=== PATIENT | male | born 1955 | race Caucasian/White ===

== ENCOUNTER 2018-07-20 15:14 | Day surgery (SDC) | payer BC ==
[2018-07-20] MEDS ORDERED: Lidocaine 1%/Sod Bicarbonate in NS 8.4% 1 ML Syringe IDERM PRN (16:21)
[2018-07-20] MEDS ORDERED: Sodium Chloride 0.9% 10 ML Syringe FLUSH PRN (16:21)
[2018-07-20] MEDS ORDERED: Bupivacaine 0.5%/EPINEPHrine 1:200,000 50 ML MDV ONE (16:24)
[2018-07-20] MEDS ORDERED: Lidocaine 1% with EPINEPHrine 1:100,000 20 ML MDV ONE (16:24)
--- NOTE | 2018-07-20 16:28 | PCM.PREANE ---
Preanesthetic Assessment - Anesthesia/Transfusion/Family Hx Anesthesia History: Prior Anesthesia Without Reaction Family History of Anesthesia Reaction: No Transfusion History: No Prior Transfusion(s) - Review of Systems General: No Symptoms Pulmonary: No Symptoms Cardiovascular: No Symptoms Gastrointestinal: No Symptoms Neurological: No Symptoms Other: Reports: None - Physical Assessment NPO Status Date: 07/20/18 NPO Status Time: 07:00 Pulse: 74 O2 Sat by Pulse Oximetry: 98 Respiratory Rate: 16 Blood Pressure: 148/64 Temperature: 37.1 C Vital Signs: Last Vital Signs Temp 37.1 C 07/20/18 15:23 Pulse 74 07/20/18 15:23 Resp BP 174/88 H 07/20/18 15:23 Pulse Ox 98 07/20/18 15:23 Height: 1.8 m Weight: 66.678 kg Mental Status: Alert & Oriented x3 Airway Class: Mallampati = 1 Dentition: Reports: Normal Dentition, [place](s) Thyro-Mental Finger Breadths: 3 Mouth Opening Finger Breadths: 3 ROM/Head Extension: Full Lungs: Clear to Auscultation, Normal Respiratory Effort Cardiovascular: Regular Rate, Regular Rhythm, No Murmurs - Lab Values: on chart - Allergies Allergies/Adverse Reactions: Allergies Allergy/AdvReac Type Severity Reaction Status Date / Time No Known Allergies Allergy Verified 07/20/18 15:22 - Blood Blood Available: No Product(s) Available: None - Anesthesia Plan Pre-Op Medication Ordered: None - Acknowledgements Anesthesia Type Planned: MAC Pt an Appropriate Candidate for the Planned Anesthesia: Yes Alternatives and Risks of Anesthesia Discussed w Pt/Guardian: Yes Pt/Guardian Understands and Agrees with Anesthesia Plan: Yes PreAnesthesia Questionnaire Cardiovascular History: Reports: High Cholesterol - SUBSTANCE USE Smoking Status *Q: Former Smoker Tobacco Use Within Last Twelve Months: Cigarettes Second Hand Smoke Exposure: No Days Per Week of Alcohol Use: 0 Number of Drinks Per Day: 0 Total Drinks Per Week: 0 Recreational Drug Use History: No - HOME MEDS Home Medications: Home Meds Rosuvastatin [Crestor] 5 mg PO BEDTIME 07/20/18 [History] Zolpidem Tartrate [Ambien] 5 mg PO BEDTIME 07/20/18 [History] - CURRENT (IN HOUSE) MEDS Current Meds: Current Medications Lactated Ringer's (Ringers, Lactated) 1,000 mls @ 125 mls/hr IV ASDIRECTED СВЕТЛАНА Lidocaine/Sodium Bicarbonate (Buffered Lidocaine 1% In Ns 8.4%) 0.25 ml IDERM ONETIME PRN PRN Reason: Prior to IV Start Sodium Chloride (Saline Flush) 10 ml FLUSH ASDIRECTED PRN PRN Reason: Keep Vein Open
[2018-07-20] MEDS ORDERED: Lactated Ringers 1,000 ML IV SCH (16:30)
[2018-07-20] MEDS ORDERED: Midazolam 1 MG/ML 2 ML SDV ONE (16:40)
[2018-07-20] MEDS ORDERED: Propofol 200 MG/20 ML SDV ONE (16:40)
[2018-07-20] MEDS ORDERED: fentaNYL 250 MCG/5 ML SDV ONE (16:40)
[2018-07-20] MEDS ORDERED: Lidocaine 1% 4 ML ONE (16:40)
[2018-07-20] MEDS ORDERED: Ketorolac 30 MG/ML SDV ONE (17:09)
--- NOTE | 2018-07-20 17:16 | PCM.OPNOTE ---
- General Post-Op/Procedure Note Date of Surgery/Procedure: 07/20/18 Operative Procedure(s): I&D ivan rectal abscess Pre Op Diagnosis: ivan rectal abscess Post-Op Diagnosis: Same Anesthesia Technique: MAC Primary Surgeon: Yung Rowe EBL in mLs: 5 Complications: None Condition: Good
[2018-07-20] MEDS ORDERED: HYDROmorphone 1 MG/ML Syringe IVPUSH PRN (17:25)
[2018-07-20] MEDS ORDERED: fentaNYL 100 MCG/2 ML SDV IVPUSH PRN (17:25)
--- NOTE | 2018-07-20 17:27 | PCM48HPAN ---
Post Anesthesia Note - EVALUATION WITHIN 48HRS OF ANESTHETIC Vital Signs in Normal Range: Yes Patient Participated in Evaluation: Yes Respiratory Function Stable: Yes Airway Patent: Yes Cardiovascular Function Stable: Yes Hydration Status Stable: Yes Pain Control Satisfactory: Yes Nausea and Vomiting Control Satisfactory: Yes Mental Status Recovered: Yes Pulse Rate: 78 SaO2: 99 Resp Rate: 16 Temperature: 37.3 C Blood Pressure: 139/71 - COMMENTS/OBSERVATIONS Free Text/Narrative:: no anesthesia complications noted
--- NOTE | 2018-07-20 17:27 | PCM.POSTAN ---
POST ANESTHESIA ASSESSMENT - MENTAL STATUS Mental Status: Somnolent - VITAL SIGNS Pulse Rate: 12 SaO2: 95 Resp Rate: 12 Blood Pressure: 139/71 Temperature: 37.3 C - RESPIRATORY Respiratory Status: Respiratory Rate WNL, Airway Patent, O2 Saturation Stable, Supplemental Oxygen - CARDIOVASCULAR CV Status: Pulse Rate WNL, Blood Pressure Stable - GASTROINTESTINAL GI Status: No Symptoms - PAIN Pain Score: 0 - POST OP HYDRATION Hydration Status: Adequate & Stable
--- NOTE | 2018-07-20 22:14 | OR ---
DATE OF OPERATION: 07/20/2018 SURGEON: Yung Rowe MD PREOPERATIVE DIAGNOSIS: Perirectal abscess. POSTOPERATIVE DIAGNOSIS: Perirectal abscess. OPERATION PERFORMED: Incision and drainage done under IV sedation, local anesthetic of 0.5% Marcaine. FINDINGS: A small perirectal abscess in the right anterior perirectal area. Did not show any connection with the anal glands. ESTIMATED BLOOD LOSS: 5 mL. DESCRIPTION OF PROCEDURE: The patient was taken to the operating room, placed in a supine position, connected to monitoring equipment, given IV sedation and placed in a lithotomy position. Perianal area was prepped with Betadine and draped off in a sterile fashion. Swelling was noted at the perirectal area and this was incised and pus was removed. It was then packed open with a quarter-inch Nu Gauze. Bleeding ceased with pressure. Inspection within the anal canal did not show any other pathology. Palpation did not show any extension beyond the abscess beyond this area. This completed the operation. The patient tolerated the procedure and sent to recovery room in a stable condition. ANESTHESIA: MMODAL /[id number]
== END 2018-07-20 18:20 | disposition home or self-care (01) ==
LOC: JD.ED 15:14 → JD.SDS 17:23
PROVIDERS: ATTEND Surgery
DX: K61.1 Rectal abscess (principal); E78.00 Pure hypercholesterolemia, unspecified; Z79.899 Other long term (current) drug therapy; Z87.891 Personal history of nicotine dependence
CPT/HCPCS: 46040; J1885; J2250; J2704; J3010; J3490; 99284; J2001

== ENCOUNTER 2019-04-25 01:06 | Emergency (ER) | payer MEDICARE, BC ==
--- NOTE | 2019-04-25 01:42 | EDM.PDOC ---
ED HPI GENERAL MEDICAL PROBLEM - General Chief Complaint: Flank Pain Stated Complaint: POSS KIDNEY STONE Time Seen by Provider: 04/25/19 01:19 Source of Information: Reports: Patient, RN Notes Reviewed - History of Present Illness INITIAL COMMENTS - FREE TEXT/NARRATIVE: 64-year-old male comes in with right low back discomfort. This first started 2 days ago, is worse this evening, unable to sleep. Pain is primarily right low back with radiation to right flank. It does not get better with rest and not worse with motion. No nausea vomiting fever or chills. No voiding symptomatology. History of prior kidney stones. Treatments LEAD RECOVERER: Reports: NSAIDS Right Flank Pain Score (Numeric/FACES): 5 - Related Data Allergies Allergy/AdvReac Type Severity Reaction Status Date / Time No Known Allergies Allergy Verified 04/25/19 01:14 Home Meds: Home Meds Rosuvastatin [Crestor] 5 mg PO BEDTIME 07/20/18 [History] Zolpidem Tartrate [Ambien] 5 mg PO BEDTIME PRN 07/20/18 [History] Past Medical History HEENT History: Reports: Impaired Vision Cardiovascular History: Reports: High Cholesterol Genitourinary History: Reports: Renal Calculus - Infectious Disease History Infectious Disease History: Reports: Chicken Pox - Past Surgical History HEENT Surgical History: Reports: Oral Surgery, Tonsillectomy Social & Family History - Family History Family Medical History: Noncontributory - Tobacco Use Smoking Status *Q: Former Smoker Used Tobacco, but Quit: Yes Month/Year Tobacco Last Used: 2017 - Caffeine Use Caffeine Use: Reports: Soda - Recreational Drug Use Recreational Drug Use: No ED ROS GENERAL - Review of Systems Review Of Systems: See Below HEENT: Reports: No Symptoms Respiratory: Reports: No Symptoms Cardiovascular: Reports: No Symptoms GI/Abdominal: Denies: Abdominal Pain, Nausea, Vomiting Musculoskeletal: Reports: Back Pain Skin: Reports: No Symptoms Neurological: Reports: No Symptoms ED EXAM, RENAL/ - Physical Exam Exam: See Below General Appearance: Alert, Moderate Distress Head: Atraumatic Neck: Supple Respiratory/Chest: No Respiratory Distress, Lungs Clear, Normal Breath Sounds Cardiovascular: Regular Rate, Rhythm GI/Abdominal: Soft, Non-Tender. No: Guarding Back Exam: No: CVA Tenderness (L), CVA Tenderness (R), Paraspinal Tenderness Extremities: Normal Inspection, Normal Range of Motion Neurological: Alert, Oriented, No Motor/Sensory Deficits Course - Vital Signs Last Recorded V/S: Last Vital Signs Temp 97.4 F 04/25/19 01:11 Pulse 70 04/25/19 01:11 Resp 18 04/25/19 01:11 BP 164/92 H 04/25/19 01:11 Pulse Ox 100 04/25/19 01:11 - Orders/Labs/Meds Orders: Active Orders 24 hr Category Date Time Status Abdomen Pelvis wo Cont [CT] Stat Exams 04/25/19 01:28 Taken Labs: Laboratory Tests 04/25/19 Range/Units 01:45 Urine Color Yellow (Yellow) Urine Appearance Clear (Clear) Urine pH 7.0 (5.0-8.0) Ur Specific [place] 1.020 (1.005-1.030) Urine Protein Negative (Negative) Urine Glucose (UA) Negative (Negative) Urine Ketones Negative (Negative) Urine Occult Blood Negative (Negative) Urine Nitrite Negative (Negative) Urine Bilirubin Negative (Negative) Urine Urobilinogen 0.2 (0.2-1.0) Ur Leukocyte Esterase Negative (Negative) Urine RBC 0-5 (0-5) /hpf Urine WBC 0-5 (0-5) /hpf Ur Epithelial Cells Not seen (0-5) /hpf Urine Bacteria Not seen (FEW) /hpf Urine Mucus Not seen (FEW) /hpf - Re-Assessments/Exams Free Text/Narrative Re-Assessment/Exam: 04/25/19 03:06 UA was negative, CT does not show kidney stone or hydrocodone ureter. It does show a right renal cyst. See report for details. Discharge instructions as documented Departure - Departure Time of Disposition: 03:03 Disposition: Home, Self-Care 01 Condition: Fair Clinical Impression: Renal cyst Back pain Qualifiers: Back pain location: low back pain Chronicity: acute Back pain laterality: right Sciatica presence: without sciatica Qualified Code(s): M54.5 - Low back pain - Discharge Information Referrals: Eric Gilman MD [Primary Care Provider] - Forms: ED Department Discharge Additional Instructions: Rest back, avoid heavy lifting, alternate ice and heat as needed, Tylenol or ibuprofen every 6-8 hours for mild to moderate discomfort or hydrocodone previously prescribed if needed for more severe pain. Do not take Tylenol and hydrocodone at the same time. Do not drive when taking hydrocodone, follow up with Dr. Lomas if discomfort not resolving within 5-7 days as expected, return to ED as needed. - My Orders Last 24 Hours: My Active Orders 04/25/19 01:28 Abdomen Pelvis wo Cont [CT] Stat - Assessment/Plan Last 24 Hours: My Active Orders 04/25/19 01:28 Abdomen Pelvis wo Cont [CT] Stat
--- NOTE | 2019-04-25 09:35 | CT ---
CT abdomen and pelvis Technique: Multiple axial sections were obtained from above the dome of the diaphragm inferiorly through the pubic symphysis. Intravenous and oral contrast not utilized. Study has been performed as a ureteral stone protocol. Comparison: No prior abdominal imaging. Findings: Cyst is noted within the right kidney measuring 2.7 cm. Kidneys show no abnormal calcifications. Small cyst is also noted within the left kidney measuring about 9 mm. No ureteral dilatation or ureteral stone is seen. Small portion of the visualized lung bases show nothing acute. Liver contains no focal parenchymal abnormality. Spleen appears within normal limits. Adrenal glands show no nodule. Pancreas is within normal limits. Aorta shows atherosclerotic calcification without aneurysm. Atherosclerotic calcification continues into the iliac vessels. Appendix is seen which is normal in size. No pelvic mass or adenopathy is seen. Radiation implant seeds are noted within the prostate gland. No free fluid or inflammatory change is seen. Bone window settings were reviewed which show Schmorl's node deformities within the upper lumbar spine. Disc space narrowing is noted at T11-T12. Disc space narrowing and vacuum phenomenon is noted at L5-S1. Degenerative apophyseal change is noted within the lower lumbar spine. Impression: 1. No renal calculi, ureteral stone or ureteral dilatation is seen. 2. Other incidental findings as noted above. No acute abnormality identified on noncontrast CT study of the abdomen and pelvis performed as a ureteral stone protocol. Diagnostic code #2 I agree with preliminary report from [facility], finalized on 04/25/19, 3:52 AM Central Time
== END 2019-04-25 03:30 | disposition home or self-care (01) ==
LOC: JD.ED 01:06
DX: N28.1 Cyst of kidney, acquired (principal); Z87.891 Personal history of nicotine dependence
CPT/HCPCS: 74176; 74176-26; 81001; 99284-25

== ENCOUNTER 2020-10-07 14:08 | Day surgery (SDC) | payer MEDICARE, BC ==
[2020-10-07] MEDS: Polymyxin B/Trimethoprim 10 ML Bottle EYERT SCH ×4 (14:20→16:18)
[2020-10-07] MEDS: Brimonidine 0.2% Ophth Soln 5 ML Bottle EYERT SCH ×4 (14:25→16:18)
--- NOTE | 2020-10-07 14:28 | PCM.PREANE ---
Preanesthetic Assessment - Anesthesia/Transfusion/Family Hx Anesthesia History: Prior Anesthesia Without Reaction Family History of Anesthesia Reaction: No Transfusion History: No Prior Transfusion(s) - Review of Systems General: No Symptoms Pulmonary: No Symptoms Cardiovascular: Other (HTN) Gastrointestinal: No Symptoms Neurological: No Symptoms - Physical Assessment NPO Status Date: 10/06/20 NPO Status Time: 23:00 Weight: 68.039 kg ASA Class: 2 Mental Status: Alert & Oriented x3 Airway Class: Mallampati = 2 Dentition: Reports: Normal Dentition Thyro-Mental Finger Breadths: 3 Mouth Opening Finger Breadths: 3 ROM/Head Extension: Full Lungs: Clear to Auscultation, Normal Respiratory Effort Cardiovascular: Regular Rate, Regular Rhythm - Allergies Allergies/Adverse Reactions: Allergies Allergy/AdvReac Type Severity Reaction Status Date / Time No Known Allergies Allergy Verified 10/06/20 15:34 - Blood Blood Available: No Product(s) Available: None - Anesthesia Plan Pre-Op Medication Ordered: None - Acknowledgements Anesthesia Type Planned: MAC Pt an Appropriate Candidate for the Planned Anesthesia: Yes Alternatives and Risks of Anesthesia Discussed w Pt/Guardian: Yes Pt/Guardian Understands and Agrees with Anesthesia Plan: Yes PreAnesthesia Questionnaire HEENT History: Reports: Impaired Vision Cardiovascular History: Reports: High Cholesterol Genitourinary History: Reports: Renal Calculus - Infectious Disease History Infectious Disease History: Reports: Chicken Pox - Past Surgical History HEENT Surgical History: Reports: Oral Surgery, Tonsillectomy - HOME MEDS Home Medications: Home Meds Rosuvastatin [Crestor] 5 mg PO BEDTIME 07/20/18 [History] Aspirin [Jose Chewable Aspirin] 81 mg PO DAILY 10/06/20 [History] Losartan [Cozaar] 50 mg PO DAILY 10/06/20 [History] Polyvinyl Alcohol/Povidone/Pf [Refresh Classic Eye Drops] 1 dose EYEBOTH ASDIRECTED PRN 10/06/20 [History] - CURRENT (IN HOUSE) MEDS Current Meds: Current Medications Brimonidine Tartrate (Alphagan 0.2% Ophth Soln) 0 ml EYERT ASDIRECTED СВЕТЛАНА Stop: 10/07/20 18:00 Cefuroxime Sodium (Zinacef) 0 mg EYERT ASDIRECTED СВЕТЛАНА Stop: 10/07/20 18:00 Lidocaine HCl (Xylocaine-Mpf 1%) 0 ml INJECT ASDIRECTED СВЕТЛАНА Stop: 10/07/20 18:00 Phenylephrine HCl (Vijay-Synephrine 2.5% Ophth Soln) 0 ml EYERT ASDIRECTED СВЕТЛАНА Stop: 10/07/20 18:00 Pilocarpine HCl (Pilocar 4% Ophth Soln) 0 ml EYERT ASDIRECTED СВЕТЛАНА Stop: 10/07/20 18:00 Polymyxin/Trimethoprim Sulfate (Polytrim Ophth Soln) 0 ml EYERT ASDIRECTED СВЕТЛАНА Stop: 10/07/20 18:00 Last Admin: 10/07/20 14:20 Dose: 1 drop Documented by: Tetracaine HCl (Tetracaine 0.5% Steri-Unit Laura) 0 ml EYEBOTH ASDIRECTED СВЕТЛАНА Stop: 10/07/20 18:00 Tropicamide (Mydriacyl 1% Ophth Soln) 0 ml EYERT ASDIRECTED СВЕТЛАНА Stop: 10/07/20 18:00
[2020-10-07] MEDS: Phenylephrine 2.5% Ophth Soln 2 ML Bot EYERT SCH ×6 (14:30→15:55)
[2020-10-07] MEDS: Tropicamide 1% Ophth Soln 15 ML Bottle EYERT SCH ×4 (14:35→15:34)
[2020-10-07] MEDS: Tetracaine HCl/PF 0.5% 4 ML Bottle EYEBOTH SCH ×4 (15:39→16:04)
[2020-10-07] MEDS: Lidocaine 1% PF 2 ML SDV INJECT SCH ×2 (15:42→16:04)
[2020-10-07] MEDS: Pilocarpine 4% Ophth Soln 15 ML Bot EYERT SCH ×2 (15:42→16:18)
[2020-10-07] MEDS: Cefuroxime 10 MG/ML SYRINGE EYERT SCH ×2 (15:42→16:17)
--- NOTE | 2020-10-07 17:09 | PCM48HPAN ---
Post Anesthesia Note - EVALUATION WITHIN 48HRS OF ANESTHETIC Vital Signs in Normal Range: Yes Patient Participated in Evaluation: Yes Respiratory Function Stable: Yes Airway Patent: Yes Cardiovascular Function Stable: Yes Hydration Status Stable: Yes Pain Control Satisfactory: Yes Nausea and Vomiting Control Satisfactory: Yes Mental Status Recovered: Yes Vital Signs: Last Vital Signs Temp 36.4 C 10/07/20 16:20 Pulse 55 L 10/07/20 16:20 Resp 16 10/07/20 16:20 BP 146/76 H 10/07/20 16:20 Pulse Ox 99 10/07/20 16:20
== END 2020-10-07 16:25 | disposition home or self-care (01) ==
LOC: JD.SDS 14:08
PROVIDERS: ATTEND Ophthalmology
DX: H25.813 Combined forms of age-related cataract, bilateral (principal); H35.363 Drusen (degenerative) of macula, bilateral; H35.3131 Nonexudative age-related macular degeneration, bilateral, early dry stage; H40.1131 Primary open-angle glaucoma, bilateral, mild stage; H16.103 Unspecified superficial keratitis, bilateral; H16.223 Keratoconjunctivitis sicca, not specified as Sjogren's, bilateral; H02.834 Dermatochalasis of left upper eyelid; H02.831 Dermatochalasis of right upper eyelid; Z98.890 Other specified postprocedural states; E78.00 Pure hypercholesterolemia, unspecified; I10 Essential (primary) hypertension; Z87.891 Personal history of nicotine dependence; Z79.899 Other long term (current) drug therapy
CPT/HCPCS: 66984; C1780; J0697; J2001

== ENCOUNTER 2020-10-28 07:40 | Day surgery (SDC) | payer MEDICARE, BC ==
[2020-10-28] MEDS: Polymyxin B/Trimethoprim 10 ML Bottle EYELF SCH ×4 (07:45→09:26)
--- NOTE | 2020-10-28 07:48 | PCM.PREANE ---
Preanesthetic Assessment - Anesthesia/Transfusion/Family Hx Anesthesia History: Prior Anesthesia Without Reaction Family History of Anesthesia Reaction: No Transfusion History: No Prior Transfusion(s) - Review of Systems Pulmonary: No Symptoms Cardiovascular: Other (HTN, high cholesterol) Gastrointestinal: No Symptoms Neurological: No Symptoms Other: Reports: None - Physical Assessment NPO Status Date: 10/27/20 NPO Status Time: 23:00 Weight: 68.039 kg ASA Class: 2 Mental Status: Alert & Oriented x3 Airway Class: Mallampati = 2 Dentition: Reports: Normal Dentition Thyro-Mental Finger Breadths: 3 Mouth Opening Finger Breadths: 3 ROM/Head Extension: Full Lungs: Clear to Auscultation, Normal Respiratory Effort Cardiovascular: Regular Rate, Regular Rhythm - Allergies Allergies/Adverse Reactions: Allergies Allergy/AdvReac Type Severity Reaction Status Date / Time No Known Allergies Allergy Verified 10/27/20 13:40 - Blood Blood Available: No Product(s) Available: None - Anesthesia Plan Pre-Op Medication Ordered: None - Acknowledgements Anesthesia Type Planned: MAC Pt an Appropriate Candidate for the Planned Anesthesia: Yes Alternatives and Risks of Anesthesia Discussed w Pt/Guardian: Yes Pt/Guardian Understands and Agrees with Anesthesia Plan: Yes PreAnesthesia Questionnaire HEENT History: Reports: Impaired Vision Cardiovascular History: Reports: High Cholesterol Genitourinary History: Reports: Renal Calculus - Infectious Disease History Infectious Disease History: Reports: Chicken Pox - Past Surgical History HEENT Surgical History: Reports: Oral Surgery, Tonsillectomy - HOME MEDS Home Medications: Home Meds Rosuvastatin [Crestor] 5 mg PO BEDTIME 07/20/18 [History] Aspirin [Jose Chewable Aspirin] 81 mg PO DAILY 10/06/20 [History] Losartan [Cozaar] 50 mg PO DAILY 10/06/20 [History] Polyvinyl Alcohol/Povidone/Pf [Refresh Classic Eye Drops] 1 dose EYEBOTH ASDIRECTED PRN 10/06/20 [History] - CURRENT (IN HOUSE) MEDS Current Meds: Current Medications Brimonidine Tartrate (Alphagan 0.2% Ophth Soln) 0 ml EYELF ASDIRECTED СВЕТЛАНА Stop: 10/28/20 18:00 Cefuroxime Sodium (Zinacef) 0 mg EYELF ASDIRECTED СВЕТЛАНА Stop: 10/28/20 18:00 Lidocaine HCl (Xylocaine-Mpf 1%) 0 ml INJECT ASDIRECTED СВЕТЛАНА Stop: 10/28/20 18:00 Phenylephrine HCl (Vijay-Synephrine 2.5% Ophth Soln) 0 ml EYELF ASDIRECTED СВЕТЛАНА Stop: 10/28/20 18:00 Pilocarpine HCl (Pilocar 4% Ophth Soln) 0 ml EYELF ASDIRECTED СВЕТЛАНА Stop: 10/28/20 18:00 Polymyxin/Trimethoprim Sulfate (Polytrim Ophth Soln) 0 ml EYELF ASDIRECTED СВЕТЛАНА Stop: 10/28/20 18:00 Tetracaine HCl (Tetracaine 0.5% Steri-Unit Laura) 0 ml EYEBOTH ASDIRECTED СВЕТЛАНА Stop: 10/28/20 18:00 Tropicamide (Mydriacyl 1% Ophth Soln) 0 ml EYELF ASDIRECTED СВЕТЛАНА Stop: 10/28/20 18:00
[2020-10-28] MEDS: Brimonidine 0.2% Ophth Soln 5 ML Bottle EYELF SCH ×4 (07:50→09:26)
[2020-10-28] MEDS: Phenylephrine 2.5% Ophth Soln 2 ML Bot EYELF SCH ×6 (07:56→09:07)
[2020-10-28] MEDS: Tropicamide 1% Ophth Soln 15 ML Bottle EYELF SCH ×4 (07:59→08:47)
[2020-10-28] MEDS: Lidocaine 1% PF 2 ML SDV INJECT SCH ×2 (08:33→09:13)
[2020-10-28] MEDS: Cefuroxime 10 MG/ML SYRINGE EYELF SCH ×2 (08:34→09:25)
[2020-10-28] MEDS: Tetracaine HCl/PF 0.5% 4 ML Bottle EYEBOTH SCH ×3 (08:34→09:14)
[2020-10-28] MEDS: Pilocarpine 4% Ophth Soln 15 ML Bot EYELF SCH ×2 (08:35→09:26)
--- NOTE | 2020-10-28 09:27 | PCM48HPAN ---
Post Anesthesia Note - EVALUATION WITHIN 48HRS OF ANESTHETIC Vital Signs in Normal Range: Yes Patient Participated in Evaluation: Yes Respiratory Function Stable: Yes Airway Patent: Yes Cardiovascular Function Stable: Yes Hydration Status Stable: Yes Pain Control Satisfactory: Yes Nausea and Vomiting Control Satisfactory: Yes Mental Status Recovered: Yes Vital Signs: Last Vital Signs Temp 36.2 C 10/28/20 07:40 Pulse 75 10/28/20 07:40 Resp 16 10/28/20 07:40 BP 133/70 10/28/20 07:40 Pulse Ox 98 10/28/20 07:40
== END 2020-10-28 09:34 | disposition home or self-care (01) ==
LOC: JD.SDS 07:40
PROVIDERS: ATTEND Ophthalmology
DX: H25.812 Combined forms of age-related cataract, left eye (principal); I10 Essential (primary) hypertension; E78.00 Pure hypercholesterolemia, unspecified; H40.1131 Primary open-angle glaucoma, bilateral, mild stage; H35.363 Drusen (degenerative) of macula, bilateral; H35.3131 Nonexudative age-related macular degeneration, bilateral, early dry stage; H52.31 Anisometropia; Z98.890 Other specified postprocedural states; Z79.899 Other long term (current) drug therapy; Z79.82 Long term (current) use of aspirin; Z96.1 Presence of intraocular lens
CPT/HCPCS: 66984; C1780; J0697; J2001

== ENCOUNTER 2021-09-15 07:25 | Day surgery (SDC) | payer MEDICARE, BC ==
--- NOTE | 2021-09-15 07:57 | PCM.PREANE ---
Preanesthetic Assessment - Anesthesia/Transfusion/Family Hx Anesthesia History: Prior Anesthesia Without Reaction Family History of Anesthesia Reaction: No Transfusion History: No Prior Transfusion(s) Intubation History: Unknown - Review of Systems General: No Symptoms Pulmonary: No Symptoms Cardiovascular: No Symptoms Gastrointestinal: Vomiting (threw up prep this morning) Neurological: No Symptoms Other: Reports: None - Physical Assessment NPO Status Date: 09/15/21 NPO Status Time: 03:45 Vital Signs: Last Vital Signs Temp 36.7 C 09/15/21 07:45 Pulse 78 09/15/21 07:45 Resp 16 09/15/21 07:45 BP 146/84 H 09/15/21 07:45 Pulse Ox 96 09/15/21 07:45 ASA Class: 2 Mental Status: Alert & Oriented x3 Airway Class: Mallampati = 1 Thyro-Mental Finger Breadths: 3 Mouth Opening Finger Breadths: 3 ROM/Head Extension: Full Lungs: Clear to Auscultation, Normal Respiratory Effort Cardiovascular: Regular Rate, Regular Rhythm - Allergies Allergies/Adverse Reactions: Allergies Allergy/AdvReac Type Severity Reaction Status Date / Time No Known Allergies Allergy Verified 09/14/21 12:56 - Acknowledgements Anesthesia Type Planned: MAC Pt an Appropriate Candidate for the Planned Anesthesia: Yes Alternatives and Risks of Anesthesia Discussed w Pt/Guardian: Yes Pt/Guardian Understands and Agrees with Anesthesia Plan: Yes PreAnesthesia Questionnaire HEENT History: Reports: Impaired Vision, Other (See Below) Other HEENT History: bilateral hearing loss, sinus infection, right tinnitis Cardiovascular History: Reports: High Cholesterol, Hypertension Respiratory History: Reports: Other (See Below) Other Respiratory History: pulmonary nodule Gastrointestinal History: Reports: Other (See Below) Other Gastrointestinal History: cecal polyp Genitourinary History: Reports: None, Renal Calculus [employer]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 Musculoskeletal History: Reports: Osteoarthritis Neurological History: Reports: None Psychiatric History: Reports: Other (See Below) Other Psychiatric History: insomnia Endocrine/Metabolic History: Reports: None Hematologic History: Reports: None Immunologic History: Reports: None Oncologic (Cancer) History: Reports: Prostate Dermatologic History: Reports: Eczema, Other (See Below) Other Dermatologic History: incision and drainage, ivan rectal abcess - Infectious Disease History Infectious Disease History: Reports: None - Past Surgical History HEENT Surgical History: Reports: Cataract Surgery, Oral Surgery, Tonsillectomy Cardiovascular Surgical History: Reports: None Respiratory Surgical History: Reports: None GI Surgical History: Reports: Colonoscopy Female Surgical History: Reports: None Male Surgical History: Reports: None Endocrine Surgical History: Reports: None Neurological Surgical History: Reports: None Musculoskeletal Surgical History: Reports: Other (See Below) Other Musculoskeletal Surgeries/Procedures:: left leg surgery Oncologic Surgical History: Reports: None Dermatological Surgical History: Reports: None - SUBSTANCE USE Tobacco Use Status *Q: Former Tobacco User Tobacco Use Within Last Twelve Months: Cigarettes Recreational Drug Use History: No - HOME MEDS Home Medications: Home Meds Rosuvastatin [Crestor] 5 mg PO BEDTIME 07/20/18 [History] Aspirin [Jose Chewable Aspirin] 81 mg PO DAILY 10/06/20 [History] Acetaminophen [Tylenol] 650 mg PO Q4H PRN 09/14/21 [History] Clobetasol [Clobetasol Propionate 0.05%] 1 dose TOP DAILY PRN 09/14/21 [History] Irbesartan [Avapro] 150 mg PO DAILY 09/14/21 [History] Zolpidem [Ambien] 5 - 10 mg PO BEDTIME PRN 09/14/21 [History]
[2021-09-15] MEDS ORDERED: Lactated Ringers 1,000 ML IV SCH (08:00)
[2021-09-15] MEDS ORDERED: Propofol 200 MG/20 ML SDV ONE ×3 (08:04→09:02)
[2021-09-15] MEDS ORDERED: Lidocaine 1% 4 ML ONE (08:05)
--- NOTE | 2021-09-15 09:27 | PCM.PRNOTE ---
- Free Text/Narrative Note: Date: 09/15/2021 Procedure: screening colonoscopy History: prior screening colonoscopy with tubular adenoma identified Endoscopist: Morgan Burns MD Findings: patient finished only half of SuPrep, bowel prep was fair. Cecum reached. 5 small polyps identified, 4 of which were within the sigmoid colon. Sigmoid diverticulosis. Detailed Report: The patient was taken to the endoscopy suite and placed in left lateral decubitus position. Timeout was performed and monitored anesthesia care was initiated. The anus appeared normal. Digital rectal exam was unremarkable except the prostate did not feel well defined. The colonoscope was inserted and advanced all the way to the cecum. Navigation of the sigmoid colon was difficult due to redundancy. Bowel prep was fair, the patient only completed half of the Suprep, and there was thick dark green sludge more in the proximal colon. The appendiceal orifice was visualized. The scope was slowly withdrawn and mucosal surfaces carefully inspected. Irrigation was used to help visualize mucosal surfaces adequately. A small subcentimeter sessile polyp was identified at about the lesion of the splenic flexure. This was removed with cold forceps. Within the sigmoid, diverticular disease was appreciated. 4 small subcentimeter well-circumscribed benign-appearing polyps were identified and removed using cold forceps. On retroflexion, no significant hemorrhoidal disease was appreciated. Air was suctioned from the distal colon and rectum rigoberto or to withdrawal of the scope. The patient tolerated the procedure well.
--- NOTE | 2021-09-15 09:33 | PCM48HPAN ---
Post Anesthesia Note - EVALUATION WITHIN 48HRS OF ANESTHETIC Vital Signs in Normal Range: Yes Patient Participated in Evaluation: Yes Respiratory Function Stable: Yes Airway Patent: Yes Cardiovascular Function Stable: Yes Hydration Status Stable: Yes Pain Control Satisfactory: Yes Nausea and Vomiting Control Satisfactory: Yes Mental Status Recovered: Yes Vital Signs: Last Vital Signs Temp 36.3 C 09/15/21 09:27 Pulse 82 09/15/21 09:27 Resp 12 09/15/21 09:27 BP 110/63 09/15/21 09:27 Pulse Ox 95 09/15/21 09:27
== END 2021-09-15 10:10 | disposition home or self-care (01) ==
LOC: JD.SDS 07:25
PROVIDERS: ATTEND Surgery
DX: Z12.11 Encounter for screening for malignant neoplasm of colon (principal); D12.4 Benign neoplasm of descending colon; K57.30 Diverticulosis of large intestine without perforation or abscess without bleeding; I10 Essential (primary) hypertension; E78.5 Hyperlipidemia, unspecified; Z79.82 Long term (current) use of aspirin; Z79.899 Other long term (current) drug therapy; E78.00 Pure hypercholesterolemia, unspecified; Z87.891 Personal history of nicotine dependence; R94.30 Abnormal result of cardiovascular function study, unspecified; Z98.890 Other specified postprocedural states
CPT/HCPCS: 45380; 88305; J2704; J7120; 00812